=== PATIENT | female | born 1985 | race Two or more races ===

== ENCOUNTER 2017-02-26 21:14 | Emergency (ER) | payer OTHER ==
[2017-02-26 22:22] LABS: SPECIFIC GRAVITY 1.015 (1.001-1.030); URINE BILIRUBIN NEGATIVE (NEGATIVE); URINE BLOOD NEGATIVE (NEGATIVE); URINE GLUCOSE (UA) NEGATIVE (NEGATIVE); URINE LEUKOCYTE ESTERASE NEGATIVE (NEGATIVE); URINE NITRITE NEGATIVE (NEGATIVE); URINE PROTEIN NEGATIVE (NEGATIVE); URINE UROBILINOGEN NORMAL (0-1 mg/dl)
[2017-02-26 22:24] LABS: URINE APPEARANCE CLEAR; URINE COLOR YELLOW
--- NOTE | 2017-02-27 07:56 | US ---
EXAMINATION: Obstetrical ultrasound less than 14 weeks. CLINICAL INDICATION:Pelvic pain. . Clinical estimated gestational age: 21 weeks 6 days : 3 , para 2 Technique:Transabdominal and transvaginal sonograms performed. Findings: There is no discernible gestational sac, pole, yolk sac or cardiac activity identified. There is an irregular central fluid collection with a mean diameter 1.6 cm. No decidual response is currently appreciated. No discrete uterine abnormalities are otherwise identified. Maternal adnexa: Right ovary 2.0 x 1.9 x 2.3 centimeters. There is Doppler flow. No complicated fluid collections are identified. Left ovary: 2.5 x 1.7 x 2.1 centimeters. There is Doppler flow. No complicated fluid collections are identified. Free fluid:Absent IMPRESSION: Currently no intrauterine gestation is identified. This finding is nonspecific. Early intrauterine gestation, blighted ovum, missed , and ectopic cannot be excluded.. Continued clinical surveillance, serial serum beta hCGs and followup sonography if indicated should be considered. Findings were communicated by [facility] to the emergency department at: 1:37 AM 02/27/2017
== END 2017-02-27 03:15 | disposition home or self-care (01) ==
LOC: ED 21:14
DX: O26.892 Other specified pregnancy related conditions, second trimester (principal); R10.2 Pelvic and perineal pain; Z3A.21 21 weeks gestation of pregnancy